=== PATIENT | male | born 1980 | race Caucasian/White ===

== ENCOUNTER 2019-12-30 10:28 | Emergency (ER) | payer OTHER ==
[~2019-12-30] VITALS: Ht 193 cm; Wt 99.8 kg
[~2019-12-30 10:28] MED LIST: BACLOFEN20 MG PO; HYDROCODONE BIT1 T11 PO; MEDROL DOSEPAK4 MG PO; MOTRIN800 MG PO; NORFLEX100 MG PO; PERCOCET 325 MG1 TA2 PO
[2019-12-30 10:52] LABS: BASO % 0.1 % (0.0-1.0); EOS % 0.1 % (1.0-4.0); HEMATOCRIT 42.6 % (42.0-52.0); LYMPH # 0.9 10*3/uL (1.3-4.4); LYMPH % 8.2 % (27.0-41.0); MEAN CELL VOLUME 89.9 fl (80.0-94.0); MEAN CORPUSCULAR HGB 28.9 pg (27.0-31.0); MEAN CORPUSCULAR HGB CONC 32.2 g/dl (33.0-37.0); MEAN PLATELET VOLUME 9.7 fl (9.6-12.3); MONO # 0.4 10*3/uL (0.1-1.0); MONO % 3.8 % (3.0-9.0); NEUT # 9.7 10*3/uL (2.3-7.9); NEUT % 87.5 % (47.0-73.0); PLATELET COUNT AUTOMATED 226 10*3/uL (130-400); RED BLOOD COUNT 4.74 10*6/uL (4.50-5.90); RED CELL DISTRI WIDTH 12.6 % (0-14.5); WHITE BLOOD COUNT 11.1 10*3/uL (4.8-10.8)
[2019-12-30 11:09] LABS: ALBUMIN 3.9 gm/dl (3.1-4.5); ALKALINE PHOSPHATASE 59 U/L (45-117); BUN 12 mg/dl (7-24); CHLORIDE 106 mmol/L (98-107); CREATININE 1.06 mg/dL (0.70-1.30); LIPASE 97 U/L (73-393); POTASSIUM 3.5 mmol/L (3.5-5.1); SGOT/AST 18 IU/L (3-35); SGPT/ALT 72 U/L (12-78); SODIUM 140 mmol/L (136-145); TOTAL PROTEIN 7.6 gm/dL (6.4-8.2)
[2019-12-30 11:10] LABS: TROPONIN I < 0.015 ng/ml (<0.045)
== END 2019-12-30 13:50 | disposition home or self-care (01) ==
LOC: ED 10:28
PROVIDERS: Nurse Practitioner Family
DX: M54.5 Low back pain (principal); R10.84 Generalized abdominal pain

== ENCOUNTER 2020-08-31 07:57 | Inpatient (IN) | payer BC ==
[~2020-08-31] VITALS: Ht 193 cm; Wt 103.6 kg
[2020-08-31 08:01] VITALS: BP 151/89
[2020-08-31 08:30] LABS: BASO % 0.2 % (0.0-1.0); EOS # 0.1 10*3/uL (0.0-0.4); EOS % 0.4 % (1.0-4.0); HEMATOCRIT 41.2 % (42.0-52.0); LYMPH # 1.2 10*3/uL (1.3-4.4); LYMPH % 9.6 % (27.0-41.0); MEAN CELL VOLUME 89.8 fl (80.0-94.0); MEAN CORPUSCULAR HGB 29.2 pg (27.0-31.0); MEAN CORPUSCULAR HGB CONC 32.5 g/dl (33.0-37.0); MEAN PLATELET VOLUME 9.6 fl (9.6-12.3); MONO # 0.6 10*3/uL (0.1-1.0); MONO % 4.7 % (3.0-9.0); NEUT # 10.4 10*3/uL (2.3-7.9); NEUT % 84.8 % (47.0-73.0); PLATELET COUNT AUTOMATED 209 10*3/uL (130-400); RED BLOOD COUNT 4.59 10*6/uL (4.50-5.90); RED CELL DISTRI WIDTH 12.6 % (0-14.5); WHITE BLOOD COUNT 12.3 10*3/uL (4.8-10.8)
[2020-08-31 08:44] LABS: ALBUMIN 3.6 gm/dl (3.1-4.5); ALKALINE PHOSPHATASE 63 U/L (45-117); BUN 15 mg/dl (7-24); CHLORIDE 108 mmol/L (98-107); CREATININE 1.18 mg/dL (0.70-1.30); POTASSIUM 3.6 mmol/L (3.5-5.1); SGOT/AST 20 IU/L (3-35); SGPT/ALT 64 U/L (12-78); SODIUM 139 mmol/L (136-145); TOTAL PROTEIN 7.5 gm/dL (6.4-8.2)
[2020-08-31 12:56] VITALS: BP 144/81
[2020-08-31 14:56] VITALS: BP 145/55
[2020-08-31 16:45] VITALS: BP 142/75
[2020-08-31 20:00] VITALS: BP 145/81
[2020-09-01] VITALS (11 sets, daily range): BP systolic 117–132; BP diastolic 63–79
[2020-09-01 06:50] LABS: HEMATOCRIT 40.6 % (42.0-52.0); MEAN CELL VOLUME 89.2 fl (80.0-94.0); MEAN CORPUSCULAR HGB 29.2 pg (27.0-31.0); MEAN CORPUSCULAR HGB CONC 32.8 g/dl (33.0-37.0); MEAN PLATELET VOLUME 10.1 fl (9.6-12.3); PLATELET COUNT AUTOMATED 190 10*3/uL (130-400); RED BLOOD COUNT 4.55 10*6/uL (4.50-5.90); RED CELL DISTRI WIDTH 12.8 % (0-14.5); WHITE BLOOD COUNT 13.1 10*3/uL (4.8-10.8)
[2020-09-01 07:06] LABS: ALBUMIN 3.4 gm/dl (3.1-4.5); ALKALINE PHOSPHATASE 59 U/L (45-117); BUN 9 mg/dl (7-24); CHLORIDE 107 mmol/L (98-107); CHOLESTEROL 174 mg/dL (<200); CREATININE 0.95 mg/dL (0.70-1.30); LDL CHOLESTEROL 111 mg/dL (9-159); POTASSIUM 3.6 mmol/L (3.5-5.1); SGOT/AST 29 IU/L (3-35); SGPT/ALT 67 U/L (12-78); SODIUM 138 mmol/L (136-145); TOTAL PROTEIN 6.9 gm/dL (6.4-8.2); TRIGLYCERIDES 80 mg/dl (<150)
[2020-09-01 07:12] LABS: FREE T4 0.96 ng/dl (0.76-1.46); THYROID STIM HORMONE (HS) 0.679 uIU/ml (0.358-4.75)
[2020-09-01 07:37] LABS: PLATELET SUFFICIENCY NORMAL (NORMAL); TOTAL CELLS COUNTED 100 #CELLS
[2020-09-02 08:00] VITALS: BP 123/89
[2020-09-02 12:00] VITALS: BP 127/83
[2020-09-02 16:00] VITALS: BP 141/92
[2020-09-02 20:00] VITALS: BP 127/77
[2020-09-03] VITALS: BP 108/70
[2020-09-03 08:00] VITALS: BP 131/77
[2020-09-03 08:13] LABS: BASO % 0.4 % (0.0-1.0); EOS # 0.1 10*3/uL (0.0-0.4); EOS % 1.2 % (1.0-4.0); HEMATOCRIT 38.1 % (42.0-52.0); LYMPH # 1.6 10*3/uL (1.3-4.4); MEAN CELL VOLUME 90.5 fl (80.0-94.0); MEAN CORPUSCULAR HGB 29.7 pg (27.0-31.0); MEAN CORPUSCULAR HGB CONC 32.8 g/dl (33.0-37.0); MEAN PLATELET VOLUME 9.8 fl (9.6-12.3); MONO # 1.1 10*3/uL (0.1-1.0); MONO % 11.9 % (3.0-9.0); NEUT # 6.4 10*3/uL (2.3-7.9); NEUT % 69.2 % (47.0-73.0); PLATELET COUNT AUTOMATED 191 10*3/uL (130-400); RED BLOOD COUNT 4.21 10*6/uL (4.50-5.90); WHITE BLOOD COUNT 9.3 10*3/uL (4.8-10.8)
[2020-09-03 08:48] LABS: BUN 13 mg/dl (7-24); CHLORIDE 107 mmol/L (98-107); CREATININE 0.99 mg/dL (0.70-1.30); POTASSIUM 3.6 mmol/L (3.5-5.1); SODIUM 141 mmol/L (136-145)
[2020-09-03 12:00] VITALS: BP 132/81
[2020-09-03 16:00] VITALS: BP 123/78
[2020-09-03 20:00] VITALS: BP 135/80
[2020-09-04] VITALS: BP 112/63
[2020-09-04 08:00] VITALS: BP 136/82
[2020-09-04] MEDS ORDERED: DOK COLACE100 MG PO (11:05)
[2020-09-04] MEDS ORDERED: AUGMENTIN 875-875 MG PO (11:05)
[2020-09-04] MEDS ORDERED: HYDROCODONE-AC1 EAC1 PO (11:05)
[2020-09-04] MEDS ORDERED: ZOFRAN4 MG PO (11:05)
== END 2020-09-04 12:48 | disposition home or self-care (01) | DRG 854 ==
LOC: ED 07:57 → EDHOLD 11:10 → 5E 11:10 → EDHOLD 12:08 → 5E 14:52 → EDHOLD 15:32 → 5E 16:08
PROVIDERS: Registered Nurse; Student in an Organized Health Care Education/Training Program; ADMIT Internal Medicine; ATTEND Internal Medicine
PROC: 0FT44ZZ Resection of Gallbladder, Percutaneous Endoscopic Approach (ICD-10-PCS; principal; 2020-09-01)
DX: A41.9 Sepsis, unspecified organism (principal); E44.1 Mild protein-calorie malnutrition; K80.00 Calculus of gallbladder with acute cholecystitis without obstruction; E87.8 Other disorders of electrolyte and fluid balance, not elsewhere classified; R73.9 Hyperglycemia, unspecified; Z82.49 Family history of ischemic heart disease and other diseases of the circulatory system